=== PATIENT | female | born 1970 | race Caucasian/White ===

== ENCOUNTER → 2016-08-15 | Outpatient (CLI) | payer OTHER ==
[~2016-08-15] MED LIST: FLEXERIL 1010 MG/TAB PO; LEVAQUIN 250MG250 MG PO; LORTAB 5/500 501 TAB PO; MULTIPLE VITAMI1 CAP PO; NAPROSYN500 MG PO; PREMARIN 1.251.25 MG PO; VICODIN 5/5001 UDTAB PO; vitamin
== END ==
LOC: MC.RAD 11:20
DX: Z12.31 Encounter for screening mammogram for malignant neoplasm of breast (principal)

== ENCOUNTER → 2017-10-29 | Outpatient (CLI) | payer BC | LOC: MC.RAD 13:26 | DX: Z12.31 Encounter for screening mammogram for malignant neoplasm of breast (principal) ==

== ENCOUNTER → 2019-01-04 | Outpatient (CLI) | payer BC | LOC: MC.RAD 12:46 | DX: R92.2 Inconclusive mammogram (principal) ==

== ENCOUNTER → 2019-01-06 | Outpatient (CLI) | payer BC | LOC: MC.RAD 09:33 | DX: N64.89 Other specified disorders of breast (principal) | CPT/HCPCS: G0279 ==

== ENCOUNTER → 2020-08-30 | Outpatient (CLI) | payer BC | LOC: MC.RAD 10:37 | DX: Z12.31 Encounter for screening mammogram for malignant neoplasm of breast (principal); N63.10 Unspecified lump in the right breast, unspecified quadrant ==

== ENCOUNTER → 2020-09-06 | Outpatient (CLI) | payer BC | LOC: MC.RAD 13:54 | DX: N64.89 Other specified disorders of breast (principal) ==

== ENCOUNTER → 2021-03-14 | Outpatient (CLI) | payer BC | LOC: MC.RAD 08:59 | DX: N60.01 Solitary cyst of right breast (principal) ==

== ENCOUNTER → 2021-10-09 | Outpatient (CLI) | payer BC | LOC: MC.RAD 13:56 | DX: Z12.31 Encounter for screening mammogram for malignant neoplasm of breast (principal); N64.89 Other specified disorders of breast ==

== ENCOUNTER → 2021-10-16 | Outpatient (CLI) | payer BC | LOC: MC.RAD 12:42 | DX: R92.8 Other abnormal and inconclusive findings on diagnostic imaging of breast (principal) ==

== ENCOUNTER → 2023-10-21 | Outpatient (CLI) | payer BC | LOC: MC.RAD 12:30 | DX: Z12.31 Encounter for screening mammogram for malignant neoplasm of breast (principal) ==